=== PATIENT | male | born 1995 | race Caucasian/White ===

== ENCOUNTER 2020-04-27 16:05 | Emergency (ER) | payer SELFPAY ==
[2020-04-27 16:12] VITALS: BP 110/54; PULSE 60; RESP 16; TEMP 36; O2SAT 100
--- NOTE | 2020-04-27 16:24 | ED.WOUNDLAC ---
HPI - Wound/Laceration General Chief Complaint: Wound/Laceration Stated Complaint: remove stitches Time Seen by Provider: 04/27/20 16:15 Source: patient and RN notes reviewed Mode of arrival: ambulatory Limitations: no limitations History of Present Illness HPI narrative: Patient presents today requesting suture removal from his left thumb. He cut his thumb with a knife while he was in [place] approximately 2 weeks ago. He was supposed to have had the sutures removed 5 days ago, but was not able to, so he is seeking treatment today. Denies any problems with the sutures since placement. He is up-to-date on his tetanus vaccine. He does report some residual numbness to the tip of the finger. Related Data Home Medications Medication Instructions Recorded Confirmed No Home Medications 04/27/20 04/27/20 Allergies Allergy/AdvReac Type Severity Reaction Status Date / Time No Known Allergies Allergy Verified 04/27/20 16:12 Review of Systems Review of Systems: Narrative: CONSTITUTIONAL: Denies body aches, fever, chills, or sweats. EYES: Denies visual changes, redness, or discharge. ENT: Denies rhinorrhea, congestion, sore throat, or otalgia. CARDIOVASCULAR: Denies chest pain, palpitations, or edema. RESPIRATORY: Denies cough or dyspnea. GASTROINTESTINAL: Denies abdominal pain, nausea, vomiting, or diarrhea. GENITOURINARY: Denies dysuria or hematuria. SKIN: Denies rash, itching. + Left thumb healing laceration MUSCULOSKELETAL: Denies back pain, joint pain, or myalgia. NEUROLOGIC: Denies headache, tingling, or weakness. + Numbness to distal tip of left thumb PSYCH: Denies depression or anxiety. [facility] Social History Social History (Updated 04/27/20 @ 16:26 by Shantel Pabon, [facility], ) Smoking status: Current every day smoker Comments At time of signature, I have reviewed and agree with nursing past medical, surgical, social and family history unless otherwise noted. Please see nursing chart for further information. There is no relevant family history pertinent to the presenting complaint Exam Narrative: Exam Narrative: GENERAL: Well-appearing, well-nourished, and in no acute distress. HEAD: Normocephalic, atraumatic. EYES: EOMI. No redness or drainage. Conjunctivae normal. ENT: Mucous membranes pink and moist. NECK: Normal AROM. CHEST: No respiratory distress. EXTREMITIES: Normal range of motion. No edema. SKIN: Warm, dry, no rash. Capillary refill normal. Normal skin turgor. 2 cm healing laceration to the palmar aspect of the distal phalanx of the left first finger. 4 intact sutures noted. No redness, edema, drainage. Wound well approximated. Nontender to palpation. Full range of motion of the finger noted. Distal tip has some numbness. Fingernail is unaffected. NEURO: No focal deficits. Alert and oriented x3. Gait steady. PSYCH: Normal affect. No signs of depression or anxiety. Course Vital Signs Vital signs: Vital Signs Temperature 96.8 F L 04/27/20 16:12 Pulse Rate 60 04/27/20 16:12 Respiratory Rate 16 04/27/20 16:12 Blood Pressure 110/54 L 04/27/20 16:12 Pulse Oximetry 100 04/27/20 16:12 Temperature 96.8 F L 04/27/20 16:12 Pulse Rate 60 04/27/20 16:12 Respiratory Rate 16 04/27/20 16:12 Blood Pressure 110/54 L 04/27/20 16:12 Pulse Oximetry 100 04/27/20 16:12 Reviewed Procedures Other Procedure Procedure 1: Other Procedure: 4 intact sutures removed from left thumb. Edges well approximated after removal. Patient tolerated procedure well. Dressed with Band-Aid. MDM - Wound/Laceration Differential Diagnosis Differential diagnosis: Likely laceration and other (Suture removal, cellulitis, abscess) Critical Care Time Critical Care Time Critical Care Time: No Discharge Plan Discharge Clinical Impression: Encounter for removal of sutures Patient Disposition: Home, Self-Care Condition: Stable Instructions: Stitches Removal (E
== END 2020-04-27 16:38 | disposition home or self-care (01) ==
PROVIDERS: Emergency Provider Nurse Practitioner
DX: S61.012D Laceration without foreign body of left thumb without damage to nail, subsequent encounter (principal); W26.0XXD Contact with knife, subsequent encounter; F17.200 Nicotine dependence, unspecified, uncomplicated
CPT/HCPCS: 99201; G0463